=== PATIENT | male | born 1985 | race Caucasian/White ===

== ENCOUNTER 2024-11-18 19:09 | Emergency (ER) | payer SELFPAY ==
[2024-11-18 19:11] VITALS: BP 146/87; PULSE 79; RESP 15; TEMP 36.4; O2SAT 97; BMI 27.3
--- NOTE | 2024-11-18 19:47 | EX.ED.VIS.EY ---
HPI History of Present Illness Chief Complaint: Eye Problem PFSH PFS Medical History no medical history Home Medications ?Medication ?Instructions ?Recorded ?Last Taken ?Type ciprofloxacin HCl 0.3 % eye drops 1 drp LEFT EYE Q4H 5 days #10 mL 11/18/24 Unknown Rx Allergy/AdvReac Type Severity Reaction Status Date / Time Penicillins (PCN) Allergy Mild Hives Verified 11/18/24 19:10 Social History Smoking Status: Current every day smoker tobacco type: cigarettes EXAM Physical Exam Const Vital Signs: 11/18/24 19:11 Temperature 97.6 F L Temperature Source Temporal Pulse Rate 79 Respiratory Rate 15 Blood Pressure 146/87 H Blood Pressure Mean 106 Pulse Ox 97 Oxygen Delivery Method Room Air [facility] MDM MDM Narrative Medical decision making narrative: HISTORY OF PRESENT ILLNESS: 38-year-old male presents with concern for foreign body in left eye. 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 He was grinding. Noted a sharp pain in his left eye. Feels like he has a foreign body in his left eye. REVIEW OF SYSTEMS: Pertinent positives: Foreign body left eye Pertinent negatives: Vomiting PHYSICAL EXAM: Nursing triage notes reviewed, Vital signs reviewed Constitutional: please see mdm HENT: MMM Eyes: Visual acuity 20/15 OD, 20/20 OS, visual fang intact, pupils equal round and reactive to light, Extraocular muscles intact, apply tetracaine and fluorescein. Use slit lamp. No obvious Sidel sign. No sign of foreign body. Lids were everted. No sign of foreign body with lid eversion. MEDICAL DECISION MAKING: Chief Complaint: Foreign body in left eye External records reviewed: Reviewed prior outpatient patient records Factors affecting care: none Social determinants of health: none History obtained from others: none Consults: none [facility] Narrative: The patient was initially hemodynamically stable, afebrile and nontoxic-appearing. Exam with intact visual acuity. Intact visual fang. I considered the following differential diagnosis: Eye foreign body, corneal abrasion, globe rupture Fluorescein tetracaine applied No obvious corneal abrasion, globe rupture or foreign body noted. Eye was irrigated. Patient noted improvement in symptoms. Abdomen abundance of caution will prescribe ciprofloxacin eyedrops. Will give ophthalmology follow-up for further evaluation and treatment if the patient's symptoms continue. The patient and/or family, caregivers express understanding. The patient and/or family, caregivers agrees with the plan. Shared decision making: I will have a discussion with the patient and or visitors regarding risk/benefits of further testing or admission. They will be made aware of of the risk/benefits inherent in this decision they will be given the opportunity to voice understanding. Total critical care time today provided was at least 0 minutes. This excludes separately billable procedures. Critical care time (if documented) is secondary to the patient having high probability of clinically significant/life threatening deterioration in the patient's condition which required my urgent intervention. Impression: 1. Left eye pain 2. Corneal abrasion Dispo: Discharge home This note was generated with [employer] dictation software. It may contain incorrect words, spelling, and punctuation that were not noted in review of the chart prior to signing. Discharge Plan Triage Chief Complaint: Eye Problem ED Provider: Jethro Luciano Dx/Rx/DC Orders Instructions: ED Corneal Abrasion Prescriptions: New ciprofloxacin HCl 0.3 % drops 1 drp LEFT EYE Q4H 5 Days Qty: 10 0RF Rx Instructions: administer while awake Stand Alone Forms: ED Work / School Excuse Primary Care Provider: Mirna Ramos Referrals: Neri Hampton MD [Med Staff - Active Staff] - Activity Restrictions/Additional Instructions: Thank you for trusting us with your care today! Your exam failed to reveal an obvious metallic foreign body. Always wear eye protection when working heavy machinery or grinding. Please take Tylenol (2 pills, 650 mg), ibuprofen (2 pills, 400 mg) every 6 hours as needed for pain and fever control. Please return to the emergency department if your symptoms change or worsen. Please follow with ophthalmology for further outpatient evaluation and management. Print Language: Hebrew Disposition Disposition: Home, Self Care
[2024-11-18] MEDS: Fluorescein 1 MG STRIP 1 STRIP EACH EYE (19:54)
[2024-11-18] MEDS: Tetracaine 0.5% Ophthalmic Bottle 1 DRP EACH EYE (19:55)
== END 2024-11-18 20:56 | disposition home or self-care (01) ==
PROVIDERS: Emergency Provider Emergency Medicine; Referring Provider Emergency Medicine; Visit Provider Emergency Medicine
DX: S05.02XA Injury of conjunctiva and corneal abrasion without foreign body, left eye, initial encounter (principal); X58.XXXA Exposure to other specified factors, initial encounter; F17.210 Nicotine dependence, cigarettes, uncomplicated
CPT/HCPCS: 99283